=== PATIENT | female | born 1995 | race Caucasian/White ===

== ENCOUNTER 2016-07-07 13:11 | Inpatient (IN) | payer OTHER ==
--- NOTE | ~2016-07-07 | CO ---
Unit #: [id number] #: [id number] Patient: MAE MCKEON [id number] [facility] [address] [place] [address] [id number] MR#: [id number] NAME: MAE MCKEON ROOM: [facility] Age: 21 Sex: F Admission Date: 07/07/2016 : 1995 Attending Physician: Ranjeet Aj M.D. Primary Care Physician: Primary Care Physician No Consultation Date: 07/09/2016 CONSULTATION REPORT ORDERING PROVIDER Dr. Aj. SUBJECTIVE The patient was seen yesterday for dizziness. At this time, she was not answering questions per nursing, so she is now slightly more compliant; however, she refused the EKG and lab work that was ordered on her, although, hospital records note that she had her potassium replaced because of 2.9 potassium level. Nursing says that she refused that potassium, so it should be examined as the patient's potassium is still low, however, without getting lab work, it is difficult to evaluate this level. Nursing was continued to encourage the patient to get her lab work and EKG. We will continue to monitor. Dictated by... Mae Vital A.P.R.N. for Lesly Hdz/garland TD: 07/09/2016 20:45 JOB #: [id number] CONSULTATION REPORT Page 1 of 1 X MAE VITAL APRN X CONSULTATION REPORT
--- NOTE | ~2016-07-07 | PN ---
Unit #: [id number] #: [id number] Patient: LEIGHA MCKEON [id number] [facility] [address] [place] [address] [id number] MR#: [id number] NAME: LEIGHA MCKEON ROOM: P110 Age: 21 Sex: F Admission Date: 07/07/2016 : 1995 Attending Physician: Ranjeet Aj M.D. Admitting Physician: Ranjeet Aj M.D. Primary Care Physician: Primary Care Physician Adelia EHAD PROGRESS NOTES DATE OF SERVICE: 07/11/2016 SUBJECTIVE Ms. Mckeon is a 21-year-old white female, who was seen today and chart was reviewed, and case was discussed with the staff. Reports the patient has been anxious, restless, and has been showing very poor motivation towards treatment, and has been refusing to cooperate on much treatment recommendation and has been exhibiting attention seeking behavior and was complaining of chest pain and the all workup included and the vitals were normal. The patient was then seen to be getting herself on the floor and convulsing and staff tried to take her vitals, she would not allow them and when they tried to use a smelling gas powder next to her nose, she kept on moving her face away from it and was very awake and alert and oriented while she was faking a seizure and she kept on doing that and when staff walked away and refused to pay attention she just came out of it without any problems and has been exhibiting similar behavior throughout the day in one form or the other and has been causing a lot of drama on the unit and she stated that there is nothing wrong with her and wants to just leave the hospital and is waiting for her 72-hour hold to . MENTAL STATUS EXAMINATION Young white female, who was casually dressed with fair personal hygiene, appears to be in no acute distress or discomfort. She was awake and alert on interaction with intact orientation. Mood is anxious with a congruent affect. The patient denies any suicidal or homicidal ideation. Her insight and judgment remain slightly impaired. TREATMENT PLAN 1. We will continue her on current treatment protocol. We will monitor her response and make further adjustments as needed. 2. We will continue to follow up. Dictated by... Lesly Dowling/modl TD: 07/11/2016 09:04 JOB #: [id number] Unit #: [id number] #: [id number] Patient: LINDALEIGHA PROGRESS NOTES Page 1 of 1 X Ranjeet Aj MD PROGRESS NOTE
--- NOTE | ~2016-07-07 | HP ---
Unit #: [id number] #: [id number] Patient: MAE MCKEON [id number] [place] [address] [id number] I MR#: [id number] NAME: MAE MCKEON ROOM: P122 Age: 21 Sex: F Admission Date: 07/07/2016 : 1995 Attending Physician: Ranjeet Aj M.D. Admitting Physician: Ranjeet Aj M.D. Primary Care Physician: Primary Care Physician No HISTORY AND PHYSICAL HISTORY OF PRESENT ILLNESS Mae is a 21 year old admitted to [address] [place] [address] with erratic behavior and verbalizing not liking herself and wanting to hurt herself. She has had numerous admissions to this facility. PAST MEDICAL HISTORY 1. History of illicit substance abuse to include crack cocaine and methamphetamines. 2. Asthma. 3. History of bulimia. PAST SURGICAL HISTORY Nothing reported. ALLERGIES Sulfa (hives), pneumococcal vaccine. SOCIAL HISTORY Smokes 1 pack per day. Drinks alcohol. Admits to illicit substance abuse to include marijuana, crack cocaine and methamphetamines. FAMILY HISTORY Medically noncontributory. REVIEW OF SYSTEMS CONSTITUTIONAL: No fever or chills. HEENT: Denies any sore throat, ear pain or runny nose. CARDIOVASCULAR: Denies chest pain, irregular heart rhythm or palpitations. CHEST: Denies shortness of breath or cough. No hemoptysis. GASTROINTESTINAL: Denies nausea, vomiting, diarrhea or chronic constipation. ENDOCRINE: Denies history of increased thirst or urination. No recent significant weight loss or gain. GENITOURINARY: Denies dysuria, frequency, or hematuria. SKIN: Denies any rashes. HEMATOLOGIC: Denies history of increased bleeding or bruising. MUSCULOSKELETAL: Denies any hot, swollen joints. No generalized muscle pain. NEUROLOGIC: Denies problems with vision or speech. No frequent, severe headaches. No numbness, tingling or weakness in any extremities. Denies loss of bladder or bowel control. CURRENT MEDICATIONS Unit #: [id number] #: [id number] Patient: MAE MCKEON 1. Zofran p.r.n. 2. Celexa 20 mg daily. 3. Seroquel 100 mg q.h.s. 4. Depakote 250 mg b.i.d. 5. Milk of Magnesia p.r.n. 6. Maalox p.r.n. 7. Tylenol p.r.n. 8. Nicotine patch 21 mg daily. PHYSICAL EXAMINATION GENERAL: Alert, thin, bleach blonde hair, no apparent distress. VITAL SIGNS: Blood pressure 118/70, heart rate 77, respirations 16, temperature 98.6. WEIGHT: 91 pounds. HEIGHT: 4 feet 11 inches. SKIN: Warm and dry without rash or lesion. HEENT: Normocephalic. TMs not viewed. Oral and nasal passages clear. Conjunctivae clear. PERRLA. EOMs intact. NECK: Supple without lymphadenopathy or thyromegaly. HEART: Regular rate and rhythm without murmur. LUNGS: Clear. ABDOMEN: Soft, nontender. : Not done. EXTREMITIES: No evidence of cyanosis, clubbing or edema. Moves all without focal deficit. NEUROLOGICAL: Grossly within normal limits. Cranial Nerves: II: Visual zhong are intact. III, IV AND : Extraocular movements are intact. Pupils are equal, round and reactive to light. V: Facial sensation is grossly normal. VII: Facial movements and expression are normal. VIII: Auditory acuity grossly intact. IX, X: Uvula is midline. Phonation is normal. XI: Patient shrugs shoulders and turns head normally. XII: Tongue protrudes in the midline. Sensory and Motor Function: Sensory and motor sensation is grossly normal. Motor: moves all extremities well. Coordination: Gait is normal. Deep Tendon Reflexes: Intact. IMPRESSION Psychiatric admission. RECOMMENDATIONS PSYCHIATRIC: Per psychiatrist. MEDICAL: See no contraindications to participate in facility's activities. MEDICAL PROGNOSIS Good. MEDICAL CONDITION Stable. Dictated by... Susan Beasley P.A.-C. for Lesly Hdz/[facility] Unit #: [id number] #: [id number] Patient: MAE MCKEON TD: 07/08/2016 17:34 JOB #: [id number] HISTORY AND PHYSICAL Page 1 of 1 X Susan Beasley X HISTORY AND PHYSICAL
--- NOTE | ~2016-07-07 | EKG ---
PATIENT: LEIGHA MCKEON UNIT #: [id number] Ventricular Rate: 54 BPM Atrial Rate: 54 BPM P-R Interval: 116 ms QRS Duration: 94 ms Q-T Interval: 418 ms QTC Calculation(Bezet): 396 ms P Amite: 60 degrees Calculated R Amite: 74 degrees Calculated T Amite: 54 degrees Diagnosis Line: Sinus bradycardia Diagnosis Line: Otherwise normal ECG Diagnosis Line: When compared with ECG of 21-SEP-2012 14:19, Diagnosis Line: T wave inversion less evident in Anterior leads Diagnosis Line: Confirmed by GANGA ROBERTO MD ([id number]) on 07/12/2016 Diagnosis Line: 7:15:01 PM INTERPRETING MD: PARDEEP HERNANDEZ
--- NOTE | ~2016-07-07 | DS ---
Unit #: [id number] #: [id number] Patient: LEIGHA MCKEON [id number] [facility] [address] [place] [address] [id number] I MR#: [id number] NAME: LEIGHA MCKEON ROOM: P110 Age: 21 Sex: F Admission Date: 07/07/2016 : 1995 Discharge Date: 07/12/2016 Attending Physician: Ranjeet Aj M.D. Primary Care Physician: Primary Care Physician No DISCHARGE SUMMARY IDENTIFYING DATA Ms. Mckeon is a 21-year-old white female, who was transferred to us from the emergency room. DISCHARGE DIAGNOSES Psychiatric: Bipolar disorder, most recent episode depressed, recurrent, moderate, without psychotic features; borderline personality disorder. Medical: None. Stressors: Moderate psychosocial stressors. HISTORY OF PRESENT ILLNESS Please see initial psychiatric evaluation for details. PAST PSYCHIATRIC HISTORY Please see initial psychiatric evaluation for details. PAST MEDICAL HISTORY Please see initial psychiatric evaluation for details. HOSPITAL COURSE The patient was admitted to the adult psychiatric unit at [facility] guzman Garsia and was oriented to the hospital environment. Routine p.r.n. medications were initiated, and she was started back on her home medications including her Depakote and Celexa. She was on 72 hours hold and was showing very poor insight into her situation, was constantly wanting to leave and was showing attention seeking and manipulative behavior as she would fake multiple physical symptoms in an effort to get attention and would throw herself on the floor and would fake seizures, but when the patient's staff will try to give an ammonia capsule, she would move her head away from the ammonia capsule and then would stay there until her staff will refuse to give her any more attention and walk away from her and then she will just come out of the seizure activity without any issues; however, she was not really participating very much in treatment and therefore, it was decided that she will be discharged home and will continue treatment on an outpatient basis. DISCHARGE MEDICATIONS Seroquel 200 mg at bedtime for bipolar, Depakote 250 mg b.i.d. for bipolar, Celexa 20 mg a day for depression. DISCHARGE CONDITION Stable. PROGNOSIS Unit #: [id number] #: [id number] Patient: LEIGHA MCKEON Fair. Dictated by... IrfLesly Pritchett/garland TD: 07/12/2016 07:09 JOB #: [id number] DISCHARGE SUMMARY Page 1 of 1 X Ranjeet Aj MD DISCHARGE SUMMARY
--- NOTE | ~2016-07-07 | PA ---
Unit #: [id number] #: [id number] Patient: LEIGHA MCKEON [id number] [facility] [address] [place] [address] [id number] I MR#: [id number] NAME: LEIGHA MCKEON ROOM: P122 Age: 21 Sex: F Admission Date: 07/07/2016 : 1995 Date of Assessment: 07/08/2016 Attending Physician: Ranjeet jA M.D. Admitting Physician: Ranjeet Aj M.D. Primary Care Physician: Primary Care Physician No PSYCHIATRIC ASSESSMENT IDENTIFYING INFORMATION The patient is a 21-year-old white female admitted in transfer from [facility] after she presented to that facility after she had engaged in head-banging her behavior at [facility]. CHIEF COMPLAINT None given. INFORMANT Chart. Patient does not respond during attempted interview. HISTORY OF PRESENT ILLNESS The patient is a 21-year-old white female admitted to the care of Dr. Aj who will assume her care on Sunday. The patient was last hospitalized at this facility in September of 2015 under the care of Dr. Vazquez. The patient have reported at [facility] that she was complaining of loss of appetite and was having suicidal ideation with plan to jump in the river. The patient reports a history of borderline personality disorder as well as abuse of cannabis and cocaine. When seen today, the patient is noted to be extremely psychomotorically retarded. She is lying on the floor. Her hair is oddly dyed, and she does not respond to efforts to interview her today. For more complete history of present illness, please refer to previously dictated notes. PAST PSYCHIATRIC HISTORY Reviewed, no changes. PAST MEDICAL HISTORY Reviewed, no changes. MEDICATIONS At the time of admission, the patient's prescribed medications included Seroquel, Depakote, and Celexa though her compliance with these medications is somewhat questionable. ALLERGIES Baclofen, sulfa, Ativan, Pneumococcal vaccine. FAMILY HISTORY Reviewed, no changes. SOCIAL HISTORY Reviewed, no changes. Unit #: [id number] #: [id number] Patient: LEIGHA MCKEON MENTAL STATUS EXAMINATION Examination at this time reveals the patient to be a thin, disheveled white female appearing her stated age. Of note is oddly dyed hair. The patient is awake and alert. He does not respond to but is noted to be walking slowly in the hallway and does not respond to questions paused by this physician. ASSETS AND LIABILITIES The patient's assets are to be assessed. Liabilities: Profound characterologic pathology. Ongoing substance use. DIAGNOSTIC IMPRESSION 1. Dysthymic disorder. 2. Polysubstance use disorder by history. 3. Borderline personality disorder by history. TREATMENT PLAN At this point, we will look to reinitiate the patient's medications pending a negative beta HCG. The patient will participate in appropriate order of milieu activities once able to do so, and as noted previously Dr. Aj will assume care of the patient on Sunday. Dictated by... Curtis Chacon M.D. ROSA MARIA/constantino TD: 07/08/2016 14:53 JOB #: [id number] PSYCHIATRIC ASSESSMENT Page 1 of 1 X Curtis Chacon MD X PSYCHIATRIC ASSESSMENT
--- NOTE | ~2016-07-07 | PN ---
Unit #: [id number] #: [id number] Patient: LEIGHA MCKEON [id number] [facility] [address] [place] [address] [id number] I MR#: [id number] NAME: LEIGHA MCKEON ROOM: [facility] Age: 21 Sex: F Admission Date: 07/07/2016 : 1995 Attending Physician: Ranjeet Aj M.D. Admitting Physician: Ranjeet Aj M.D. Primary Care Physician: Primary Care Physician Adelia HEAD PROGRESS NOTES DATE 07/09/2016 DISCUSSION The patient remains floridly psychotic. She complains of "something is wrong with her heart" but refused to allow an EKG to be done. She is now noted to be in the halls screaming loudly but refuses any laboratory testing or EKG. We will continue current treatment. Dr. Aj will assume care of the patient on 07/09/2016. Dictated by... Curtis Chacon M.D. CB/lucia TD: 07/10/2016 04:26 JOB #: [id number] [facility] PROGRESS NOTES Page 1 of 1 X Curtis Chacon MD X PROGRESS NOTE
--- NOTE | ~2016-07-07 | A ---
[facility] Nutrition Therapy DATE: 07/10/16 Patient: LEIGHA MCKEON Physician: COLLIN Address: [address] [facility] Room/Bed: [address], Zip: [place] [address] Admit Date: 07/07/16 Date of : [birth year] Height: 4 11 Weight: 90 [phone] NUTRITIONAL ASSESSMENT: REASON: LOW BMI (18.4) PATIENT ADMITTED FOR SI AND ERRATIC BEHAVIORS PMH: ASTHMA, HX BULIMIA, ILLICIT SUBSTANCE ABUSE Anthropometrics: HT: 4'11", WT: 91#, BMI: 18.4, IBW: 93 Labs: NO LABS AVAILABLE Meds: SEROQUEL, CELEXA, ZOFRAN Assessment: PATIENT IS A 21 Y/O FEMALE ADMITTED FOR SI AND ERRATIC BEHAVIORS. PATIENT HAS BEEN NON-COMPLIANT WITH HER MEDS PRIOR TO ADMIT AND SHE HAS HAD MULTIPLE ADMISSIONS TO THIS FACILITY. PATIENT IS CURRENTLY UNEMPLOYED, HOMELESS, SMOKES 2 PPD, AND USES ETOH, MARIJUANA, COCAINE, AND METHAMPHETAMINES. PATIENT STATED A POOR APPETITE WITH NO RECENT WEIGHT CHANGES. NURSING REPORTS POOR-GOOD PO INTAKES. PATIENT HAD A POOR APPETITE UPON ADMIT, WHICH SEEMS TO BE IMPROVING. PATIENT HAS BEEN REFUSING MEDS AT TIMES, SHE IS SELECTIVELY MED COMPLIANT, SHE CONTINUES WITH PSYCHOSIS, AND SHE REFUSED LABS. THERE ARE NO SKIN OR GI ISSUES NOTED ATT. PATIENT IS ON A REGULAR DIET. SHE DID NOT SCORE ANY NUTRITIONAL RISK POINTS AND SHE IS 93% OF HER IBW. Dx: INADEQUATE NUTRIENT INTAKE R/T CURRENT CONDITION AEB LOW BMI, DECREASED APPETITE Intervention: REGULAR DIET, MEDS PER MD, PSYCH Monitoring, Evaluation and Goals: 1. ADEQUATE PO INTAKES >50% OF MEALS 2. PREVENT, CORRECT MICRO/MACRO NUTRIENT DEFICIENCIES 3. WEIGHT; PROMOTE A STEADY WEIGHT GAIN TOWARDS A HEALTHY BMI OF 19-25 MONITOR: WEIGHTS, LABS, PO/FLUID INTAKES Recommendations: 1. CONTINUE REGULAR DIET TOLERATED. OFFER SNACKS BETWEEN MEALS. IF PATIENT HAS C/O HUNGER PLEASE SEND ORDER FOR LARGE PORTIONS AND RD WILL APPROVE 2. ENCOURAGE ADEQUATE PO AND FLUID INTAKES 3. OBTAIN WEIGHTS ROUTINELY (EVERY 3-4 DAYS) 4. IF PO INTAKES ARE BELOW 50% OF MEALS PLEASE ORDER ENSURE BID TO PROMOTE ADEQUATE KCAL [facility] Nutrition Therapy DATE: 07/10/16 Patient: LEIGHA MCKEON Physician: COLLIN Address: [address] [place] [address] Room/Bed: [address], Zip: [place] [address] Admit Date: 07/07/16 Date of : [birth year] Height: 4 11 Weight: 90 [id number] AND PROTEIN INTAKES 5. RD WILL CONTINUE TO MONITOR WEIGHTS AND PO INTAKES RD TO F/U PER PROTOCOL AND PRN R/T PATIENT MILDLY COMPROMISED Respectfully, ABBI DANG RD, LD [facility] and Nutrition[facility] Services [facility] cc: client file
--- NOTE | ~2016-07-07 | CO ---
Unit #: [id number] #: [id number] Patient: MAE MCKEON [id number] [facility] [address] [place] [address] [id number] I MR#: [id number] NAME: MAE MCKEON ROOM: [facility] Age: 21 Sex: F Admission Date: 07/07/2016 : 1995 Attending Physician: Ranjeet Aj M.D. CONSULTATION REPORT ORDERING PROVIDER Dr. Aj. REASON FOR CONSULTATION Dizziness. SUBJECTIVE The patient was found in the hallway asleep on the floor. She refused to get up. She refused to answer questions. Per nursing, she has been complaining of dizziness and falling asleep easily. OBJECTIVE Records from the hospital were reviewed with previous admission on 07/06/2016. Laboratory work there was done and she did have a low potassium level of 2.9, but she was replaced with potassium run. Her CBC was within normal limits and her hCG was negative. CT scan was done, which was also negative. Her vital signs are stable at temperature 98.2, heart rate 77, respirations 16, blood pressure 118/71, oxygen at 99%. Her examination was unremarkable other than the fact that she was asleep in the hallway. ASSESSMENT Dizziness. PLAN Plan is to get an EKG and other lab work including a repeat potassium level. I do believe that this could be somatic in nature. Dictated by... Mae Vital A.P.R.N. for Melissa Chopra M.D. EF/ivettel TD: 07/09/2016 02:46 JOB #: [id number] Unit #: [id number] #: [id number] Patient: MAE MCKEON CONSULTATION REPORT Page 1 of 1 X MAE VITAL APRN X CONSULTATION REPORT
--- NOTE | ~2016-07-07 | PN ---
Unit #: [id number] #: [id number] Patient: LEIGHA MCKEON [id number] [facility] [address] [place] [address] [id number] I MR#: [id number] NAME: LEIGHA MCKEON ROOM: P110 Age: 21 Sex: F Admission Date: 07/07/2016 : 1995 Attending Physician: Ranjeet Aj M.D. Admitting Physician: Ranejet Aj M.D. Primary Care Physician: Primary Care Physician Adelia HEAD PROGRESS NOTES DATE 07/10/2016 DISCUSSION Ms. Mckeon is a 21-year-old white female who was seen today and chart was reviewed and case was discussed with the staff. She has been anxious, withdrawn and rather seclusive to herself. Meanwhile, she has been cooperative with treatment recommendations as she has been taking the medications and tolerating them fairly well with no reported side effects. MENTAL STATUS EXAMINATION Young white female who was casually dressed with fair personal hygiene, appears to be in no acute distress or discomfort. She was awake and alert on interaction with intact orientation. Her mood was anxious with congruent affect. She denies any suicidal or homicidal ideations. Her insight and judgement remains significantly impaired. TREATMENT PLAN 1. We will continue her on her current medications and treatment protocol. We will monitor her response to the medication and make further adjustments as needed. 2. We will continue to follow up. Dictated by... Lesly Dowling/lucia TD: 07/16/2016 22:19 JOB #: [id number] Unit #: [id number] #: [id number] Patient: LEIGHA MCKEON PROGRESS NOTES Page 1 of 1 X Ranjeet Aj MD PROGRESS NOTE
== END 2016-07-12 11:15 | disposition home or self-care (01) | DRG 881 ==
LOC: P1S 13:11
DX: F34.1 Dysthymic disorder (principal); F33.1 Major depressive disorder, recurrent, moderate; F19.10 Other psychoactive substance abuse, uncomplicated; F60.3 Borderline personality disorder; J45.909 Unspecified asthma, uncomplicated; Z88.2 Allergy status to sulfonamides; F17.210 Nicotine dependence, cigarettes, uncomplicated; R42 Dizziness and giddiness
CPT/HCPCS: 82947; 93005

== ENCOUNTER 2016-10-04 18:06 | Inpatient (IN) | payer OTHER ==
[~2016-10-04] VITALS: Ht 149.9 cm; Wt 43.1 kg
--- NOTE | ~2016-10-04 | PN ---
Unit #: [id number] #: [id number] Patient: LEIGHA MCKEON [id number] [facility] [address] [place] [address] [id number] MR#: [id number] NAME: LEIGHA MCKEON ROOM: P121 Age: 21 Sex: F Admission Date: 10/04/2016 : 1995 Attending Physician: Ranjeet Aj M.D. Admitting Physician: Ranjeet Aj M.D. Primary Care Physician: Primary Care Physician Adelia HEAD PROGRESS NOTES DATE 10/07/2016 DISCUSSION Ms. Mckeon is a 21-year-old white female who was seen today and chart was reviewed and case was discussed with the staff who report patient has been anxious, withdrawn, depressed, rather seclusive to herself. Meanwhile, she has been cooperative with treatment recommendations and has been taking medications and tolerating them fairly well with no reported side effects. MENTAL STATUS EXAMINATION Young white female who was casually dressed with fair in no acute distress or discomfort. She was awake and alert on interaction with intact orientation. Her mood was anxious and depressed with congruent affect. She reports having suicidal ideations and denies any homicidal ideation. Her insight and judgement remains slightly impaired. TREATMENT PLAN 1. Will continue on current treatment protocol. Will monitor her response to the medications and make further adjustments as needed. 2. Will continue to follow up. Dictated by... Ranjeet Aj M.D. IAA/tessa TD: 10/07/2016 21:27 JOB #: [id number] Unit #: [id number] #: [id number] Patient: LEIGHA MCKEON PROGRESS NOTES Page 1 of 1 X Ranjeet Aj MD PROGRESS NOTE
--- NOTE | ~2016-10-04 | PN ---
Unit #: [id number] #: [id number] Patient: LEIGHA MCKEON [id number] [facility] [address] [place] [address] [id number] I MR#: [id number] NAME: LEIGHA MCKEON ROOM: P121 Age: 21 Sex: F Admission Date: 10/04/2016 : 1995 Attending Physician: Ranjeet Aj M.D. Admitting Physician: Ranjeet Aj M.D. Primary Care Physician: Primary Care Physician Adelia HEAD PROGRESS NOTES DATE October 08, 2016 DISCUSSION Ms. Mckeon is a 21-year-old white female, who was seen today and chart was reviewed and the case was discussed with the staff. She has been anxious, withdrawn, and rather seclusive to herself. Meanwhile, she has been cooperative with the treatment recommendations and she has been taking the medications and tolerating them fairly well with no reported side effects. MENTAL STATUS EXAMINATION Young white female, who was casually dressed with fair personal hygiene and appears to be in no acute distress or discomfort. The patient was awake and alert on interaction with intact orientation. Her mood is anxious with a congruent affect. The patient denies any suicidal or homicidal ideations. Her insight and judgment remain slightly impaired. TREATMENT PLAN 1. We will continue her on her current medications and treatment protocol, and will monitor her response to the medications, and make further adjustments as needed. 2. We will continue to followup. Dictated by... Lesly Dowling/adrian TD: 10/09/2016 10:40 JOB #: [id number] Unit #: [id number] #: [id number] Patient: LEIGHA MCKEON ABDIRASHIDRUCHI PROGRESS NOTES Page 1 of 1 X Ranjeet Aj MD PROGRESS NOTE
--- NOTE | ~2016-10-04 | PN ---
Unit #: [id number] #: [id number] Patient: LEIGHA MCKEON [id number] [facility] [address] [place] [address] [id number] MR#: [id number] NAME: LEIGHA MCKEON ROOM: P121 Age: 21 Sex: F Admission Date: 10/04/2016 : 1995 Attending Physician: Ranjeet Aj M.D. Admitting Physician: Ranjeet Aj M.D. Primary Care Physician: Primary Care Physician Adelia HEAD PROGRESS NOTES DATE 10/07/2016 DISCUSSION Ms. Mckeon is a 21-year-old white female who was seen today and chart was reviewed and case was discussed with the staff. She has been anxious, withdrawn though has been polite and pleasant and cooperative with treatment recommendations. She has been taking medications and tolerating them fairly well with no reported side effects. MENTAL STATUS EXAMINATION Young white female who was casually dressed with fair personal hygiene, appears to be in no acute distress or discomfort. She was awake and alert on interaction with intact orientation. Her mood was anxious with congruent affect. She denies any suicidal or homicidal ideations. Also, denies any auditory or visual hallucinations. Her insight and judgement remains slightly impaired. TREATMENT PLAN 1. We will continue her on her current treatment protocol. We will monitor her response from medication and make further adjustments as needed. 2. We will continue to follow up. Dictated by... Lesly Dowling/lucia TD: 10/10/2016 04:48 JOB #: [id number] Unit #: [id number] #: [id number] Patient: LEIGHA MCKEON PROGRESS NOTES Page 1 of 1 X Ranjeet Aj MD PROGRESS NOTE
--- NOTE | ~2016-10-04 | CO ---
Unit #: [id number] #: [id number] Patient: LEIGHA MCKEON [id number] [place] [address] [id number] MR#: [id number] NAME: LEIGHA MCKEON [facility]OM: [facility] Age: 21 Sex: F Admission Date: 10/04/2016 : 1995 Attending Physician: Ranjeet Aj M.D. Primary Care Physician: Primary Care Physician No Consultation Date: 10/08/2016 CONSULTATION REPORT ORDERING PROVIDER Dr. Aj. REASON FOR CONSULT UTI. SUBJECTIVE The patient is a 21-year-old female. The patient reports that she has had back pain and abdominal pain with vomiting for about the past 2 days. She reports increased frequency of urination, but no dysuria. OBJECTIVE Urinalysis revealed 2+ leukocyte esterase, negative nitrite, negative blood. ASSESSMENT Likely urinary tract infection. PLAN Plan is to start the patient on Augmentin x3 days, get a urine culture and a urine gonorrhea and chlamydia. Dictated by... Oliver Man/garland TD: 10/09/2016 01:19 JOB #: [id number] CONSULTATION REPORT Page 1 of 1 X LEIGHA SEBASTIAN APRN CONSULTATION REPORT
--- NOTE | ~2016-10-04 | PN ---
Unit #: [id number] #: [id number] Patient: LEIGHA MCKEON [id number] [facility] [address] [place] [address] [id number] MR#: [id number] NAME: LEIGHA MCKEON ROOM: P121 Age: 21 Sex: F Admission Date: 10/04/2016 : 1995 Attending Physician: Ranjeet Aj M.D. Admitting Physician: Ranjeet Aj M.D. Primary Care Physician: Primary Care Physician Adelia HEAD PROGRESS NOTES DATE OF SERVICE 10/06/2016 DISCUSSION Ms. Mckeon is a 21-year-old white female with mood disorder and psychosis who was seen today. Chart was reviewed and case was discussed with the staff who reports the patient has been vomiting since yesterday, and Phenergan has been given. However, on evaluation by me this morning, the patient informed me that she has had last menstrual period on September 02, and she was scheduled to have another this month, and that she is late for a few days, and has been sexually active and is not sure if it is too early for her to be tested for testing. However, I will request stat beta HCG to be done. Meanwhile, she has been compliant with the treatment recommendations though has been very weak and fragile, emaciated, and apparently has lost significant amount of weight and has been requesting Ensure to be provided. MENTAL STATUS EXAMINATION Young white female who is casually dressed with fair personal hygiene, appears to be in slight distress or discomfort. She was awake and alert with impaired attention and concentration. Her mood is anxious with a congruent affect. Her speech is slow and restricted in content. Her thought processes were disorganized with some looseness of associations. She denies any current suicidal or homicidal ideations. Her insight and judgment remain significantly impaired. TREATMENT PLAN 1. We will continue her on her current medications and treatment protocol. We will monitor her response to the medications and make further adjustments as needed. 2. We will continue to follow up. Dictated by... Lesly Dowling/constantino TD: 10/06/2016 09:22 JOB #: [id number] Unit #: [id number] #: [id number] Patient: LEIGHA MCKEON PROGRESS NOTES Page 1 of 1 X Ranjeet Aj MD PROGRESS NOTE
--- NOTE | ~2016-10-04 | PA ---
Unit #: [id number] #: [id number] Patient: LEIGHA MCKEON [id number] [facility] [address] [place] [address] [id number] I MR#: [id number] NAME: LEIGHA MCKEON ROOM: P121 Age: 21 Sex: F Admission Date: 10/04/2016 : 1995 Date of Assessment: 10/05/2016 Attending Physician: Ranjeet Aj M.D. Admitting Physician: Ranjeet Aj M.D. Primary Care Physician: Primary Care Physician No PSYCHIATRIC ASSESSMENT DATE OF SERVICE 10/05/2016. IDENTIFYING DATA Ms. Mckeon is a 21-year-old single white female, who is a resident of [place], [place], and is known to us from previous encounter, and was recently discharged from my care and was brought back to the hospital accompanied by her boyfriend. CHIEF COMPLAINT "I've been off my medicines since I was discharged and I never picked up my prescription." HISTORY OF PRESENT ILLNESS Ms. Mckeon is a 21-year-old white female with history of mood disorder, who was self-referred to the hospital. Upon presentation, she stated the past couple of days "my sleep has been off. I've been off my medications since I was discharged and I never picked up my prescription. I've been crying at random times. I'm talking about wanting to hang myself. I missed my daughter's birthday and I go to her gravesite to see her and she 3 years ago and I discovered a new loss and I've not been eating like I usually do or sleep I usually do and I've gotten into some fights, lashing out, not knowing why and I'm trying to be positive. Daughter was shot in the face and she got murdered. We just now discovered that. It has been got shot in the face and the rickey who did it try to kill himself, but lived. All this losses make me want to go, I would be with my daughter." Her boyfriend added stating "I told her that I think it is she who has not had her medicines, then she usually go through this when she is depressed and having crying spells and be suicidal. I've been trying to get her to come here." The patient was seen to be a significant threat to herself and as such, recommendation for inpatient level of care for safety and stabilization was made and the patient was transferred to us. SUBSTANCE ABUSE HISTORY The patient has history of alcohol, cannabis, cocaine, and spice abuse and reports more recently, she has been using cannabis on regular basis 3 to 4 blunts a day with last use a couple of days ago and denies any other recent drug abuse. PAST PSYCHIATRIC HISTORY The patient has had history of multiple inpatient psychiatric hospitalization ever since she was an adolescent and has been hospitalized Unit #: [id number] #: [id number] Patient: LEIGHA MCKEON at [facility] several times in addition to being at [facility], at [facility], at [facility], at [facility], at [facility] [place] [facility], and has had outpatient treatment through [facility] as well and has been diagnosed and treated for bipolar disorder. Review of the medical records indicate that currently she is supposed to be on Depakote and Seroquel, but has been noncompliant with medication and as such, has been decompensating. PAST MEDICAL HISTORY The patient's medical history is significant for asthma. ALLERGIES Bactrim and Ativan. PERSONAL AND SOCIAL HISTORY A 21-year-old white female, who reports that she lives at home with her boyfriend and has fairly decent social support system. MENTAL STATUS EXAMINATION Young white female who was casually dressed with fair personal hygiene, appears to be in no acute distress or discomfort. She was awake and alert on interaction with intact orientation to time, place, and person. Her mood was anxious and depressed with a congruent affect. Her speech was slow and restricted in content. Her thought processes were disorganized with some looseness of associations and flight of ideas and paranoid ideations and suicidal ideations. Her insight and judgment remain significantly impaired. DIAGNOSTIC IMPRESSION Psychiatric: Schizoaffective disorder, bipolar type, most recent episode depressed, recurrent, moderate, without psychotic features. Medical: None. Stressors: Moderate psychosocial stressors. TREATMENT PLAN 1. The patient has presented with history of mood disorder, and has been decompensating and will need inpatient hospitalization for safety and stabilization. We will start her back on her home medications. We will adjust the medications and monitor response. 2. Supportive therapy was provided to the patient. 3. Safe, structured, and nourishing environment will be provided. ESTIMATED LENGTH OF STAY 5 to 7 days. ABILITY TO HELP SELF Limited. WILLINGNESS TO HELP SELF The patient appears to be willing to help self. STRENGTHS 1. Communicative. 2. Cooperative. PROBLEMS 1. Chronic dysphoric symptoms. 2. Poor social support system. Unit #: [id number] #: [id number] Patient: LEIGHA MCKEON DISCHARGE CRITERIA This will be contingent upon the patient's ability to show resolution of her depression and anxiety and her psychosis as well as her ability to stay safe to herself and others, particularly after discharge from the hospital. Dictated by... Ranjeet Aj M.D. HI/garland TD: 10/05/2016 23:28 JOB #: [id number] PSYCHIATRIC ASSESSMENT Page 1 of 1 X Ranjeet Aj MD X PSYCHIATRIC ASSESSMENT
--- NOTE | ~2016-10-04 | HP ---
Unit #: [id number] #: [id number] Patient: [facility] MCKEON [id number] [facility] [address] [place] [address] [id number] MR#: [id number] NAME: MAE MCKEON ROOM: P121 Age: 21 Sex: F Admission Date: 10/04/2016 : 1995 Attending Physician: Ranjeet Aj M.D. Admitting Physician: Ranjeet Aj M.D. Primary Care Physician: Primary Care Physician No HISTORY AND PHYSICAL HISTORY OF PRESENT ILLNESS Mae is a 21 year old admitted to [address] [place] [address] with depression and verbalizing wanting to hurt herself. She has had other admissions to this facility for the same. PAST MEDICAL HISTORY 1. History of illicit substance abuse to include crack cocaine and methamphetamine. 2. Asthma. 3. History of bulimia. PAST SURGICAL HISTORY Nothing reported. ALLERGIES Sulfa (hives), pneumococcal vaccine. SOCIAL HISTORY Smokes one pack per day. Drinks alcohol. Admits to a history of illicit substance abuse to include marijuana, crack cocaine and methamphetamines. FAMILY HISTORY Medically noncontributory. REVIEW OF SYSTEMS CONSTITUTIONAL: No fever or chills. HEENT: Denies any sore throat, ear pain or runny nose. CARDIOVASCULAR: Denies chest pain, irregular heart rhythm or palpitations. CHEST: Denies shortness of breath or cough. No hemoptysis. GASTROINTESTINAL: Denies nausea, vomiting, diarrhea or chronic constipation. ENDOCRINE: Denies history of increased thirst or urination. No recent significant weight loss or gain. GENITOURINARY: Denies dysuria, frequency, or hematuria. SKIN: She does report itchy vesicular rash. HEMATOLOGIC: Denies history of increased bleeding or bruising. MUSCULOSKELETAL: Denies any hot, swollen joints. No generalized muscle pain. NEUROLOGIC: Denies problems with vision or speech. No frequent, severe headaches. No numbness, tingling or weakness in any extremities. Denies loss of bladder or bowel control. Unit #: [id number] #: [id number] Patient: MAE MCKEON CURRENT MEDICATIONS 1. Abilify 10 mg q day 2. Celexa 20 mg q day 3. Vistaril p.r.n. 4. Desyrel p.r.n. 5. Milk of Magnesia p.r.n. 6. Maalox p.r.n. 7. Tylenol p.r.n. 8. Depakote 250 mg b.i.d. 9. Nicotine patch 21 mg q day PHYSICAL EXAMINATION GENERAL: Alert, well-nourished, in no apparent distress. VITAL SIGNS: Blood pressure 120/86, heart rate 80, respirations 16, temperature 98.6. WEIGHT: 95 pounds. HEIGHT: 4'11". SKIN: Warm and dry without rash or lesion. HEENT: Normocephalic. TMs not viewed. Oral and nasal passages clear. Conjunctivae clear. Pupils equal, round and reactive to light and accommodation. Extraocular movements intact. NECK: Supple without lymphadenopathy or thyromegaly. HEART: Regular rate and rhythm without murmur. LUNGS: Clear. ABDOMEN: Soft, nontender. : Not done. EXTREMITIES: No evidence of cyanosis, clubbing or edema. Moves all extremities without focal deficit. NEUROLOGICAL: Grossly within normal limits. Cranial Nerves: II: Visual zhong are intact. III, IV AND : Extraocular movements are intact. Pupils are equal, round and reactive to light. V: Facial sensation is grossly normal. VII: Facial movements and expression are normal. VIII: Auditory acuity grossly intact. IX, X: Uvula is midline. Phonation is normal. XI: Patient shrugs shoulders and turns head normally. XII: Tongue protrudes in the midline. Sensory and Motor Function: Sensory and motor sensation is grossly normal. Motor: moves all extremities well. Coordination: Gait is normal. Deep Tendon Reflexes: Intact. IMPRESSION Psychiatric admission RECOMMENDATIONS PSYCHIATRIC: Per psychiatrist. MEDICAL: I see no contraindications to participating in facility's activities. MEDICAL PROGNOSIS Good. MEDICAL CONDITION Stable. Unit #: [id number] #: [id number] Patient: MAE MCKEON Dictated by... Susan Beasley P.A.-C. for Lesly Hdz/lucia TD: 10/05/2016 20:45 JOB #: [id number] HISTORY AND PHYSICAL Page 1 of 1 X Susan Beasley X HISTORY AND PHYSICAL
--- NOTE | ~2016-10-04 | DS ---
Unit #: [id number] #: [id number] [facility]: [facility] [id number] [facility] [address] [place] [address] [id number] MR#: [id number] NAME: LEIGHA MCKEON ROOM: P121 Age: 21 Sex: F Admission Date: 10/04/2016 : 1995 Discharge Date: Attending Physician: Ranjeet Aj M.D. Primary Care Physician: Primary Care Physician No DISCHARGE SUMMARY IDENTIFYING DATA Ms. Mckeon is a 21-year-old, single, white female, who is a resident of [place], [place], and is known to us from previous encounter, was recently discharged from my care, was brought back to the hospital accompanied by her boyfriend. DISCHARGE DIAGNOSES Psychiatric: Schizoaffective disorder, bipolar type, most recent episode depressed, recurrent, moderate, without psychotic features. Medical: None. Stressors: Moderate psychosocial stressors. HISTORY OF PRESENT ILLNESS Please see initial psychiatric evaluation for details. PAST PSYCHIATRIC HISTORY Please see initial psychiatric evaluation for details. PAST MEDICAL HISTORY Please see initial psychiatric evaluation for details. HOSPITAL COURSE The patient was admitted to the adult psychiatric unit at [facility] and was oriented to the hospital environment. Routine p.r.n. medications were initiated, and she was started back on her home medications; however, given her history of poor compliance with outpatient treatment as well as with the medication, she was seen to be a good candidate for long-acting injectable antipsychotic and after ruling out hypersensitivity to the molecule of aripiprazole, she was given a long-acting injection of aripiprazole with oral supplementation with aripiprazole for the next 2 weeks and Depakote and Celexa were maintained and she was closely monitored. She was initially seen to be anxious, withdrawn, and seclusive to herself. However, she was cooperative with treatment recommendation and was taking the medications regularly and was tolerating them fairly well and was able to show a decent therapeutic response and as such, it was decided that she will be discharged home and will continue treatment on an outpatient basis. DISCHARGE MEDICATIONS Depakote 500 mg at bedtime for bipolar, Abilify 10 mg at bedtime for the next 2 weeks only for bipolar, and Celexa 20 mg a day for depression. Unit #: [id number] #: [id number] Patient: LEIGHA MCKEON DISCHARGE CONDITION Stable. PROGNOSIS Fair. Dictated by... Lesly Dowling/garland TD: 10/10/2016 07:38 JOB #: [id number] DISCHARGE SUMMARY Page 1 of 1 X Ranjeet Aj MD X DISCHARGE SUMMARY
[2016-10-06 10:32] LABS: BASOPHIL% 0.5 % (0-2.5); EOSINOPHIL# 0.2 X10e3 (0-0.7); EOSINOPHIL% 3.5 % (0.0-7.0); HEMATOCRIT 39.8 % (35.0-45.0); LYMPHOCYTE# 2.1 X10e3 (1.0-3.5); LYMPHOCYTE% 34.7 % (17.0-45.0); MEAN CELL VOLUME 89.8 FL (83-96); MEAN CORPUSCULAR HEMOGLOBIN 29.3 PG (28-34); MEAN CORPUSCULAR HGB CONC 32.7 g/dL (30-36); MEAN PLATELET VOLUME 9.3 FL (6.5-11.5); MONOCYTE# 0.4 X10e3 (0-1.0); NEUTROPHIL# 3.3 X10e3 (1.5-7.1); NEUTROPHIL% 55.3 % (40-75); PLATELET COUNT 242 X10e3 (140-420); RED BLOOD COUNT 4.43 X10e (3.90-5.30); RED CELL DISTRIBUTION WIDTH 13.9 % (11.0-15.5); WHITE BLOOD COUNT 6.1 X10e3 (4.0-10.5)
[2016-10-06 10:40] LABS: DIFF IND NO
[2016-10-06 10:54] LABS: ALBUMIN SERUM 4.1 g/dL (3.5-5.0); BILIRUBIN,TOTAL 0.7 mg/dL (0.2-2.0); BUN/CREATININE RATIO 8.75; CALCIUM SERUM 9.6 mg/dL (8.4-10.2); CREATININE SERUM 0.8 mg/dL (0.6-1.4); GLOM FILT RATE Estimated 105.5 mL/min (>60); POTASSIUM 4.4 mmol/L (3.5-5.1); PROTEIN TOTAL SERUM 6.8 g/dL (6.0-8.3)
[2016-10-06 10:58] LABS: URINE APPEARANCE CLOUDY; URINE BILIRUBIN NEG (NEG); URINE BLOOD NEG (NEG); URINE COLOR YELLOW; URINE GLUCOSE NEG (NEG); URINE KETONE TRACE (NEG); URINE LEUKOCYTE ESTERASE 2+ (NEG); URINE NITRATE NEG (NEG); URINE PROTEIN NEG (NEG)
[2016-10-06 11:01] LABS: URINE BACTERIA AUWI 2+ (NEGATIVE); URINE SQUAMOUS EPITHELIAL CELL MOD /[HPF]; UWBCS1 AUWI 25-50 (0-5)
[2016-10-06 11:26] LABS: AMPHETAMINE NEG (NEG); BARBITURATES NEG (NEG); BENZODIAZEPINES NEG (NEG); COCAINE POS (NEG); MARIJUANA POS (NEG); OPIATES NEG (NEG); TRICYCLIC ANTIDEPRESSANTS POS (NEG); U METHADONE NEG (NEG)
[2016-10-10 23:51] LABS: CHLAMYDIA TRACH Not Detected (Not Detected); N GONOR Not Detected (Not Detected)
== END 2016-10-10 11:00 | disposition home or self-care (01) | DRG 885 ==
LOC: P1S 20:16
PROVIDERS: Psychiatry & Neurology Psychiatry
DX: F25.9 Schizoaffective disorder, unspecified (principal); F31.32 Bipolar disorder, current episode depressed, moderate; N39.0 Urinary tract infection, site not specified; F17.210 Nicotine dependence, cigarettes, uncomplicated; J45.909 Unspecified asthma, uncomplicated; Z88.2 Allergy status to sulfonamides; Z88.7 Allergy status to serum and vaccine
CPT/HCPCS: 80053; 80307; 81003; 84703; 85025; 87491; 87591; J2550